=== PATIENT | female | born 1970 | race Caucasian/White ===

== ENCOUNTER 2018-08-30 06:36 | Emergency (ER) | payer SELFPAY ==
[~2018-08-30] VITALS: Ht 152.4 cm; Wt 68.3 kg
[2018-08-30 07:45] VITALS: BP 117/79
[2018-08-30] MEDS ORDERED: IBUPROFEN 400MG TABLET PO ONE (07:45)
== END 2018-08-30 07:59 | disposition home or self-care (01) ==
LOC: ER 07:36
DX: H66.92 Otitis media, unspecified, left ear (principal); E11.9 Type 2 diabetes mellitus without complications
CPT/HCPCS: 99283

== ENCOUNTER 2018-09-09 02:43 | Emergency (ER) | payer MEDICAID ==
[~2018-09-09] VITALS: Ht 152.4 cm; Wt 68.0 kg
[2018-09-09 03:27] VITALS: BP 104/78
== END 2018-09-09 03:53 | disposition left against medical advice (07) ==
LOC: ER 02:43
DX: Z53.21 Procedure and treatment not carried out due to patient leaving prior to being seen by health care provider (principal)

== ENCOUNTER 2021-08-24 08:01 | Emergency (ER) | payer OTHER ==
[~2021-08-24] VITALS: Ht 157.5 cm; Wt 69.0 kg
[2021-08-24 08:05] VITALS: BP 137/97
[2021-08-24] MEDS ORDERED: AMOX1TAB16 MT (08:44)
== END 2021-08-24 09:20 | disposition home or self-care (01) ==
LOC: ER 08:01
DX: H72.91 Unspecified perforation of tympanic membrane, right ear (principal); E11.9 Type 2 diabetes mellitus without complications; Z98.890 Other specified postprocedural states
CPT/HCPCS: 99281

== ENCOUNTER 2021-10-02 19:35 | Emergency (ER) | payer OTHER ==
[~2021-10-02] VITALS: Ht 152.4 cm; Wt 66.1 kg
[~2021-10-02 19:35] MED LIST: AMOX1TAB16 MT
[2021-10-02 21:08] VITALS: BP 137/80
[2021-10-02] MEDS ORDERED: SALI1ADH TP (22:21)
== END 2021-10-02 22:35 | disposition home or self-care (01) ==
LOC: ER 19:35
DX: M79.672 Pain in left foot (principal); E11.9 Type 2 diabetes mellitus without complications; Z98.890 Other specified postprocedural states
CPT/HCPCS: 99281

== ENCOUNTER 2021-10-05 18:36 | Emergency (ER) | payer MEDICAID, OTHER ==
[~2021-10-05] VITALS: Ht 157.5 cm; Wt 72.0 kg
[~2021-10-05 18:36] MED LIST changes: +SALI1ADH TP
[2021-10-05 20:59] LABS: CLARITY URINE TURBID (CLEAR); COLOR URINE YELLOW (YELLOW); KETONES URINE 2+ (NEGATIVE); LEUKOCYTE ESTERASE URINE 2+ (NEGATIVE); NITRITE URINE POSITIVE (NEGATIVE); OCCULT BLOOD URINE 2+ (NEGATIVE); PH URINE 5.5 (4.5-8.0); PROTEIN URINE 2+ (NEGATIVE); SPECIFIC GRAVITY URINE 1.039 (1.005-1.030); UROBILINOGEN URINE 0.2 E.U./dL (0.2-1.0)
[2021-10-05] MEDS ORDERED: IBUPROFEN 600MG TABLET PO ONE (21:30)
[2021-10-05] MEDS ORDERED: CEFTRIAXONE SODIUM 1 G/VIAL IM ONE (22:30)
[2021-10-05] MEDS ORDERED: LIDOCAINE HCL 1% 20ML VIAL (Pyxis) INJ INFIL ONE (22:45)
[2021-10-05] MEDS ORDERED: CEPH500C2 MT (22:51)
[2021-10-05] MEDS ORDERED: NAP5EC MT (22:51)
[2021-10-06 00:07] VITALS: BP 118/76
== END 2021-10-06 00:09 | disposition home or self-care (01) ==
LOC: ER 18:36
DX: N39.0 Urinary tract infection, site not specified (principal); E11.9 Type 2 diabetes mellitus without complications; K21.9 Gastro-esophageal reflux disease without esophagitis
CPT/HCPCS: 81003; 81025; 87077; 87086; 87186; 96372; 99283; J0696; J3490